=== PATIENT | male | born 1945 | race Caucasian/White ===

== ENCOUNTER → 2023-05-06 | Outpatient (CLI) | payer OTHER, SELFPAY ==
[2023-05-06 13:36] LABS: AST(SGOT) 38 U/L (15-37); Alanine Aminotransfer ALT/SGPT 28 U/L (16-61); Albumin, Serum 3.2 g/dL (3.2-5.0); Alkaline Phosphatase 67 U/L (45-117); Bilirubin, Direct 0.31 mg/dL (0.00-0.30); Protein, Total 7.2 g/dL (6.4-8.2)
== END | disposition home or self-care (01) ==
PROVIDERS: PCP Internal Medicine; Visit Provider Chiropractor
DX: K74.60 Unspecified cirrhosis of liver (principal)
CPT/HCPCS: 36415; 80076